=== PATIENT | female | born 1975 | race Caucasian/White ===

== ENCOUNTER 2025-03-30 19:19 | Emergency (ER) | payer OTHER, SELFPAY ==
[2025-03-30] VITALS (30 sets, daily range): BP systolic 155–206; BP diastolic 109–154; PULSE 74–105; RESP 16–33; TEMP 36.7; O2SAT 90–97; BMI 40.5
--- OUTSIDE RECORDS SUMMARY | 2025-03-30 19:21 | XMS_ITS | Clinical Summary ---
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 For routine questions regarding patient records, call [phone] during business hours, M-F 8:00 AM - 5:00 PM Central Time. Record requests for emergency care only can be directed to [phone] at any time.[facility] Allergies Active Allergy Reactions Criticality Noted Date Comments Fish Containing Products Hives only, no other systemic symptoms,Edema, suggestive of allergic reaction, i.e., lip, tongue, or throat swelling,GI intolerance High 07/04/2008 Medications amLODIPine (Norvasc) 5 mg tablet Take 1 tablet (5 mg total) by mouth daily. 30 tablet 1 4 Active albuterol 2.5 mg /3 mL nebulizer solution Inhale 3 mL (2.5 mg total) by nebulization every 6 (six) hours as needed for wheezing or shortness of breath. 75 mL 11 4 Active ipratropium-alb uteroL (DuoNeb) 0.5-2.5 mg/3 mL nebulizer solution Inhale 3 mL by nebulization 4 (four) times a day. 180 mL 11 4 Active lisinopriL 10 mg tablet Take 1 tablet (10 mg total) by mouth daily. 30 tablet 2 4 Active predniSONE (Deltasone) 10 mg tablet Take 1 tablet (10 mg total) by mouth daily. Take 4 tablets daily x 4 days. 16 tablet 4 Active polyethylene glycol (Miralax) 17 gram powder packet Take 1 packet by mouth daily as needed for constipation. Dissolve each 17 g dose in 240 mLs (8 ounces) of beverage. 4 Active sennosides-docu sate sodium (Senokot-S) 8.6-50 mg per tablet Take 1 tablet by mouth 2 (two) times a day. 4 Active Active Problems Problem Noted Date Diagnosed Date Shortness Of Breath 12/07/2023 Chronic Obstructive Pulmonary Disease Exacerbati on 12/07/2023 Hypertensive Heart Disease Without Heart Failure 12/07/2023 Dependence Polysubstance 12/07/2023 Body Mass Index 39.0 To 39.9 Adult 12/07/2023 Social History Tobacco Use Types Packs/Day Years Used Date Smoking Tobacco: Every Day Cigarettes 0.5 20 Alcohol Use Standard Drinks/Week Comments Yes 0 (1 standard drink = 0.6 oz pur e alcohol) monthly [facility] Utilities Answer Date Recorded In the past 12 months has [facility] [employer], oil, or water [employer] threatened to shut off services in your home? No 12/15/2023 Humiliation, Afraid, Rape, and Kick questionnair e Answer Date Recorded Within the last year, have y ou been afraid of your partner or ex-partner? No 12/07/2023 Within the last year, have y ou been humiliated or emotionally abused in other ways by your partner or ex-partner? No Within the last year, have y ou been kicked, hit, slapped, or otherwise physically hurt by your partner or ex-partner? No 12/07/2023 Within the last year, have y ou been raped or forced to have any kind of sexual activity by your partner or ex-partner? No 12/07/2023 Hunger Vital Sign Answer Date Recorded Within the past 12 months, y ou worried that your food would run out before you got the money to buy more. Sometimes true Within the past 12 months, t he food you bought just didn't last and you didn't have money to get more. Sometimes true PRAPARE - Transportation Answer Date Re corded In the past 12 months, has l ack of transportation kept you from medical appointments or from getting medications? Yes 11/24 In the past 12 months, has l ack of transportation kept you from meetings, work, or from getting things needed for daily living? Yes 12/15/2023 Depression Answer Date Recor ded PHQ-9 Total Score (max 27) 14 12/14 Housing Stability Answer Date Recorded What is your living situatio n today? 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 Gender Identity Female 12/15/2023 9:24 PM CDT Sexual Orientation Straight 12/15/2023 9: 24 PM CDT Last Filed Vital Signs Vital Sign Reading Time Taken Comments Blood Pressure 150/93 12/08/2023 10:03 AM CDT Pulse 96 12/08/2023 8:05 AM CDT Temperature 37 C (98.6 F) 12/08/2023 8:05 AM CDT Respiratory Rate 20 12/08/2023 8:05 AM CDT Oxygen Saturation 94% 12/08/2023 8:05 AM CDT Inhaled Oxygen Concentration - - Weight 101 kg (222 lb 10.6 oz) 12/07/2023 11:19 AM CDT Height 160 cm (5' 3) 12/07/2023 11:19 AM CDT Body Mass Index 39.44 12/07/2023 11:19 AM CDT Plan of Treatment Health Maintenance Due Date Last Done Comments CT Colonography 1977 Cervical/Vaginal Cancer Screening 1977 Cologuard 1977 Colonoscopy 1977 Colorectal Cancer Screening 1977 FIT 1977 HIV Screening 1977 Hepatitis C Screening 1977 Mammogram 1977 Office Visit for Blood Press ure Check / Re-check 1977 Tobacco Cessation counseling 1977 IPV Vaccines (3 of 3 - 4-dose series) 03/07/1983, 02/03/1980 Hepatitis B Vaccines (1 of 3 - 19+ 3-dose series) 1996 Pneumococcal vaccine (0-49 y ears) (1 of 2 - PCV) 1996 DTaP,Tdap,and Td Vaccines (1 - Tdap) 09/04/201008/24, 02/11/2006 Depression Screening (Annual PHQ-2) 05/26/2024 Creatinine Level (Kidney Fun ction Test) 12/06/2024 12/07/2023, 12/01/2023, 11/30/2023 Potassium Level 12/06/2024 12/07/2023, 07/0 12/2023, 11/30/2023 Sodium Level 12/06/2024 12/07/2023, 07/0 12/2023, 11/30/2023 COVID-19 Vaccine ( - 2024- season) 2025 Influenza Vaccine (#1) 2025 Fasting Glucose for Diabetes Screening 12/06/2026 12/07/2023, 12/01/2023, 11/30/2023 Lipid (Cholesterol) Screening 11/30/2028 12/01/2023 Procedures Procedure Name Priority Date/Time Associated Diagnosis Comments BASIC METABOLIC PANEL, S/P STAT 12/07/2023 7:31 AM CDT from Last 3 Months or Most Recently Relevant to Health Maintenance Results * (ABNORMAL) Basic Metabolic Panel (12/07/2023 7:31 AM CDT) Potassium, P 3.9 3.6 - 5.2 mmol/L 12/07/2023 7:55 AM CDT CNFL Sodium, P 136 135 - 145 mmol/L 12/07/2023 7:55 AM CDT [facility] Chloride, P 101 98 - 107 mmol/L 12/07/2023 7:55 AM CDT [facility] Bicarbonate, P 24 22 - 29 mmol/L 12/07/2023 7:55 AM CDT [facility] Anion Gap, P 11 7 - 15 12/07/2023 7:55 AM CDT [facility] BUN (Blood Urea Nitrogen), P 10 6 - 21 mg/dL 12/07/2023 7:55 AM CDT CN[facility] Creatinine 0.71 0.59 - 1.04 mg/dL 12/07/2023 7:55 AM CDT [facility] Estimated GFR (eGFR) >90 >=60 mL/min/BSA 12/07/2023 7:55 AM CDT [facility] Comment: Estimated GFR calculated using the 2020 CKD_EPI creatinine equation. Calcium, Total, P 8.4(L) 8.6 - 10.0 mg/dL 12/07/2023 7:55 AM CDT [facility] Glucose, P 107 70 - 140 mg/dL 12/07/2023 7:55 AM CDT [facility] Blood (Blood, Venous) 12/07/2023 7:31 AM CDT 12/07/2023 7:36 AM CDT Nica Polo P.A.-C., P.A., M.S. LAB BLOOD ADD-O N Final Result [facility] [address] [place] [id number], [facility] [place] [facility] in [address] [address] from Last 3 Months or Most Recently Relevant to Health Maintenance Insurance [facility] [place] [address] Advance Directives For more information, please contact: [phone] * Full Code (Latest Code Status on File) Date Activated Date Inactivated Comments 12/07/2023 11:56 AM 12/08/2023 3:35 PM Question Answer Comments Full Code: Discussed Care Teams Body Trimmer Upholsterer Relationship Specialty Start Date End Date None Reported, Pcp PCP - General 04/02/24
--- NOTE | 2025-03-30 19:36 | ED.GENADULT ---
HPI - General Adult General Chief complaint: Chest Pain Stated complaint: Chest pressure, high BP Time Seen by Provider: 03/30/25 19:36 History of Present Illness HPI narrative: chest pressure started this AM . states SOB increasing throughout day with headache and cough, took home b/p and was 199/142. felt dizzy and came in. pt hx CHF. pt has pitting edema bilat lower. 49-year-old woman presenting to the emergency department with concern of increasing shortness of breath and anterior chest pressure. Not actually with pleuritic pain. She did also note her blood pressure to be elevated at 199/142. She was feeling more lightheaded so presented to the emergency department. No fever. She has been experiencing some cough. Headache though not horrible is left frontal. No visual disturbance. I note her to be with some end-expiratory wheezing and she denies a history of reactive airway. She does endorse congestive heart failure, unspecified and hypertension. Denies any history of heart attack. 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 Was last hospitalized she thinks in October of this year. Has had increasing lower extremity swelling right greater than left. Typically it is more symmetrical when she swells. She is not having pain in her legs though. Due to loss of insurance she has been without her medication for unspecified amount of months maybe 3 or 4. Medications included amlodipine and lisinopril and furosemide plus or minus low-dose aspirin. Currently taking care of her mother and her aunt driving [facility] and here. Related Data Home Medications ?Medication ?Instructions ?Recorded ?Confirmed amlodipine 5 mg tablet 5 mg PO DAILY 03/30/25 03/30/25 lisinopril 10 mg tablet 10 mg PO DAILY 03/30/25 03/30/25 Allergies Allergy/AdvReac Type Severity Reaction Status Date / Time Fish Containing Products AdvReac Verified 03/30/25 21:17 Review of Systems Status of ROS: Reports: 6 or more systems reviewed and unremarkable except as noted in History and below [facility] Social History Smoking Status: Current every day smoker What tobacco products do you use: cigarettes How often do you have a drink containing alcohol: monthly or less AUDIT-C Alcohol total score: 1 Non-prescribed substance use: marijuana (any form) and amphetamines/methamphetamines Non-prescribed substance use details: daily marijuana, no recent meth use Exam Narrative: Exam Narrative: Pleasant. Labored in her breathing. Mildly tachypneic. Trace end-expiratory wheeze. There breath sounds throughout but a little diminished again with this expiratory wheeze. Oropharynx looks dry. Partially edentulous. There is no JVD. No HJR. Abdomen is obese soft and nontender. Heart is tachycardic in a regular rhythm. She is well-perfused peripherally. Extremities are warm. Generally full but without pitting edema on bilateral lower extremities look relatively symmetrical to me. No pain. Funduscopic exam was challenging and unclear. Pupils are equal and 2 mm. Appears to be mentating normally. Does appear tired. Const: Vital Signs, click to edit/add: Vital Signs - 24 hr 03/30/25 19:26 03/30/25 19:47 03/30/25 19:48 Temperature 98.1 F Pulse Rate 98 Pulse Rate [Pulse Oximeter] 105 H Respiratory Rate 24 26 H Blood Pressure Blood Pressure [Ri ght Upper Arm] 206/154 H Pulse Oximetry 97 95 97 Oxygen Delivery Me thod Room Air 03/30/25 20:41 03/30/25 20:43 03/30/25 20:45 Temperature Pulse Rate 94 94 90 Pulse Rate [Pulse Oximeter] Respiratory Rate 29 H 28 H 24 Blood Pressure 189/140 H 182/134 H Blood Pressure [Ri ght Upper Arm] Pulse Oximetry 96 95 94 Oxygen Delivery Me thod 03/30/25 20:46 03/30/25 21:00 03/30/25 21:02 Temperature Pulse Rate 91 81 84 Pulse Rate [Pulse Oximeter] Respiratory Rate 24 23 33 H Blood Pressure 174/131 H Blood Pressure [Ri ght Upper Arm] Pulse Oximetry 94 92 94 Oxygen Delivery Me thod 03/30/25 21:15 03/30/25 21:30 03/30/25 21:32 Temperature Pulse Rate 82 89 89 Pulse Rate [Pulse Oximeter] Respiratory Rate 24 24 16 Blood Pressure 166/121 H Blood Pressure [Ri ght Upper Arm] Pulse Oximetry 93 90 90 Oxygen Delivery Me thod 03/30/25 21:45 03/30/25 22:00 03/30/25 22:02 Temperature Pulse Rate 87 84 84 Pulse Rate [Pulse Oximeter] Respiratory Rate 22 27 H 29 H Blood Pressure 174/126 H Blood Pressure [Ri ght Upper Arm] Pulse Oximetry 93 93 93 Oxygen Delivery Me thod 03/30/25 22:03 03/30/25 22:18 03/30/25 22:20 Temperature Pulse Rate 85 82 Pulse Rate [Pulse Oximeter] Respiratory Rate 28 H 27 H 26 H Blood Pressure 180/136 H Blood Pressure [Ri ght Upper Arm] Pulse Oximetry 93 90 96 Oxygen Delivery Me thod Room Air 03/30/25 22:21 03/30/25 22:30 03/30/25 22:32 Temperature Pulse Rate 84 85 Pulse Rate [Pulse Oximeter] Respiratory Rate 27 H 26 H 18 Blood Pressure 173/130 H Blood Pressure [Ri ght Upper Arm] Pulse Oximetry 94 91 Oxygen Delivery Me thod 03/30/25 22:45 03/30/25 22:51 03/30/25 23:00 Temperature Pulse Rate 76 83 76 Pulse Rate [Pulse Oximeter] Respiratory Rate 20 27 H 21 Blood Pressure 165/129 H Blood Pressure [Ri ght Upper Arm] Pulse Oximetry 91 94 91 Oxygen Delivery Me thod 03/30/25 23:01 03/30/25 23:15 03/30/25 23:30 Temperature Pulse Rate 80 76 Pulse Rate [Pulse Oximeter] Respiratory Rate 18 17 21 Blood Pressure 170/131 H Blood Pressure [Ri ght Upper Arm] Pulse Oximetry 93 96 Oxygen Delivery Me thod 03/30/25 23:32 Temperature Pulse Rate 75 Pulse Rate [Pulse Oximeter] Respiratory Rate 31 H Blood Pressure 155/109 H Blood Pressure [Ri ght Upper Arm] Pulse Oximetry 94 Oxygen Delivery Me thod Documenting provider has reviewed patient's vital signs: yes Course Vital Signs Vital signs: Initial Vital Signs Temperature 98.1 F 03/30/25 19:26 Temperature Source Temporal Artery Scan 03/30/25 19:26 Pulse Rate 105 H 03/30/25 19:26 Respiratory Rate 24 03/30/25 19:26 Blood Pressure 206/154 H 03/30/25 19:26 Blood Pressure Mean 171 H 03/30/25 19:26 Blood Pressure Position Sitting 03/30/25 19:26 Pulse Oximetry 97 03/30/25 19:26 Oxygen Delivery Method Room Air 03/30/25 19:26 Vital Signs Temperature 98.1 F 03/30/25 19:26 Pulse Rate 105 H 03/30/25 19:26 Respiratory Rate 24 03/30/25 19:26 Blood Pressure 206/154 H 03/30/25 19:26 Pulse Oximetry 97 03/30/25 19:26 Oxygen Delivery Method Room Air 03/30/25 19:26 Temperature 98.1 F 03/30/25 19:26 Pulse Rate 75 03/30/25 23:32 Respiratory Rate 31 H 03/30/25 23:32 Blood Pressure 155/109 H 03/30/25 23:32 Pulse Oximetry 94 03/30/25 23:32 Oxygen Delivery Method Room Air 03/30/25 22:20 Medications Administered Medications: Discontinued Medications Generic Name Dose Route Start Last Admin Trade Name Freq PRN Reason Stop Dose Admin Amlodipine Besylate 5 mg 03/30/25 21:23 03/30/25 21:53 Amlodipine 5 Mg Tablet PO 03/30/25 21:24 5 mg ONCE ONE Administration Diphenhydramine HCl 25 mg 03/30/25 19:47 03/30/25 20:07 Diphenhydramine 50 Mg/Ml Inj IVP 03/30/25 19:48 25 mg ONCE ONE Administration Furosemide 20 mg 03/30/25 21:23 03/30/25 21:31 Furosemide 10 Mg/Ml Inj IVP 03/30/25 21:24 20 mg ONCE ONE Administration Sodium Chloride 500 mls @ 500 mls/hr 03/30/25 19:47 03/30/25 22:00 0.9 % Sodium Chloride 500 Ml IV 03/30/25 20:46 Infused .Q1H ONE Infusion Sodium Chloride 500 mls @ 500 mls/hr 03/30/25 22:42 03/30/25 22:51 0.9 % Sodium Chloride 500 Ml IV 03/30/25 23:41 500 mls/hr .Q1H ONE Administration Metoprolol Tartrate 5 mg 03/30/25 20:43 03/30/25 20:54 Metoprolol Tartrate 1 Mg/Ml Inj IVP 03/30/25 20:44 5 mg ONCE ONE Administration Metoprolol Tartrate 25 mg 03/30/25 21:05 03/30/25 21:31 Metoprolol Tartrate 100 Mg Tablet PO 03/30/25 21:06 25 mg ONCE ONE Administration Metoprolol Tartrate 25 mg 03/30/25 22:00 03/30/25 22:03 Metoprolol Tartrate 25 Mg Tablet PO 03/30/25 22:01 Not Given ONCE ONE Ondansetron HCl 4 mg 03/30/25 19:47 03/30/25 20:07 Ondansetron 2 Mg/Ml Inj IVP 03/30/25 19:48 4 mg ONCE ONE Administration Medical Decision Making MDM Narrative Medical decision making narrative: I do have concerns of hypertensive emergency/urgency here. Off medications likely exacerbating underlying possible heart failure. Will be placed on monitoring engineer and oximetry. Pulmonary embolus is differential as well. Think would be prudent to scan her chest. Look for pleural effusion, pericardial effusion. May simply be a pneumonia. She is not hypoxic. The wheeze I think might be more related to fluid. Will hold off on nebulization at this point and is already tachycardic. She does note allergy to fish by product apparently in childhood. Has had scans before with contrast that have not created at allergic reaction but does end up getting nauseated and might vomit. Would like to assess with bedside ultrasound the IVC/fluid volume. Point of care bedside ultrasound by myself would in looks to have good global cardiac function. Does seem maybe a little enlarged. I do not appreciate a pericardial effusion. IVC actually seems appropriately compressible, not excessively large. From this exam I would think is euvolemic. Labs began to return. Remarkable for U tox positive for marijuana and methamphetamine. Normal D-dimer. Urinalysis with 2+ protein a small amount of blood. Magnesium of 2. Chemistries are unremarkable including normal sodium and potassium and BUN of 15 creatinine 0.9 BNP is rather elevated at 6950 Blood pressure following 5 mg of Lopressor improve slightly to 174/131. Heart rate from 105 now to 82. Appears to be tolerating this well. Double checking prior medications with Jennifer I give 20 mg of furosemide IV, 5 mg of amlodipine. And 25 mg of p.o. Lopressor. Holding on lisinopril at this point I do not think she is overloaded with fluid in heart failure exacerbation in fact think she might be intravascularly to euvolemic. I have been hesitant to use nitro drip for blood pressure and afterload reduction in part as might contribute to further tachycardia. Would otherwise be beneficial for diuresis. I asked Jennifer about last use of methamphetamine and she believes it was about a month ago finding current presence puzzling. Chest CTA independently review by me I think shows some congestion. Tiny right-sided pleural effusion. I do not see pericardial effusion. Heart looks moderately enlarged. Do manage to obtain discharge summary from admission August 21 to 08/22/2024 looks like similar presentation to today admitted with ?hypertensive crisis At that time was experiencing headache shortness of breath chest tightness right leg pain nausea vomiting. She had not been taking any medications prior to that visit. Blood pressure initially 119/158 labs with a BNP of [address] chest was done without pulmonary embolus as she had mildly elevated D-dimer. Urine drug screen was positive for methamphetamine and THC. After emergency treatment was initiated on amlodipine and received potassium replacement and looks like she left early. Does not appear that Sarah has had an echocardiogram. Ultimately diagnosis was ?hypertensive urgency?, polysubstance abuse, morbid obesity, hypertensive heart disease without heart failure, methamphetamine use disorder, history of TIA, hypokalemia Past medical included TIA, hypertension and hypertensive urgency with prior admission to July 2024, suspected COPD in nicotine dependence, psoriasis It looks like last weight was 230 lb. That was after entry at 238 lb. Today when inquired about her weight she thinks she has a little bit above 200 and today measured 220 lb. Radiology over-read of CT chest below Study:?CT-Chest Angio 95CC ISOVUE 370-03/30/2025 8:42:03 PM Ordering Physician:Gisselle Aponte Final Report: INDICATION: Increasing dyspnea, chest pressure TECHNIQUE: CT chest with i.v. contrast using pulmonary angiographic technique. MIPS, coronal and sagittal reformats were obtained. CONTRAST: 95 mL Isovue 370 COMPARISON: None FINDINGS: Cardiovascular: Moderate enlargement of the main pulmonary artery is present measuring 3.5 cm in maximal short axis diameter. The pulmonary arteries are unremarkable in enhancement with no evidence of acute pulmonary embolism. Moderate biventricular cardiomegaly with enlargement of the atria are noted. Ectasia of the ascending aorta is noted measuring 3.7 cm in maximal short axis diameter. Mediastinum: No mass or adenopathy seen. Lung: Mosaic attenuation is present in both lungs which may be due to lobular air trapping. A 6 mm nodule is noted in the posterior superior segment of the right lower lobe on image 98, series 5. High-risk patients can include those of older age, history of heavy smoking, and upper lobe nodules or nodules with irregular or spiculated margins. Fleischner Society Recommendations are not applicable in patients younger than 35, patients with known cancer or immunocompromised states. Pleura and pericardium: Trace right pleural effusion is present. No significant pericardial effusion is present. Chest wall and axilla: No mass or adenopathy seen. Bone: Unremarkable for age. Upper abdomen: Unremarkable. IMPRESSIONS: 1. No CT evidence of acute pulmonary emboli seen. 2. Moderate biventricular cardiomegaly with enlargement of the atria are noted. 3. Moderate enlargement of the main pulmonary artery is present measuring 3.5 cm in maximal short axis diameter. This may be due to pulmonary hypertension or a high cardiac output state. 4. A 6 mm nodule is noted in the posterior superior segment of the right lower lobe on image 98, series 5. In accordance with the 2017 Revised Fleischner Society Recommendations, initial follow-up CT in 6-12 months and then scans at 18-24 months are recommended if the patient has a high risk stratification. REFERENCE: 1. Bakari H, Rae Yousif et al. Guidelines for Management of Incidental Pulmonary Nodules Detected on CT Images: From the Fleischner Society 2017. Radiology. 2017;284(1):228-43. DOI:10.1148/radiol.5223981028 - Pubmed. Dictated by Albert Mendoza MD @ 03/30/2025 9:30:05 PM I have discussed potential admission with Ms. Prather. She has signed out AMA at last admission. She is amenable to admission at this point if really necessary but her preference is not to be admitted if possible. On reassessment feeling much improved with blood pressure 170/130. No longer tachycardic in the low 80s. She notes herself feeling much better. She certainly has more energy, seems more alert. Breathing easily and wheeze has resolved. Good air movement throughout. She has made a few trips to the bathroom. Did review this case with our hospitalist to admit or optimize outpatient management. Does appear safe for discharge at this time. At this point are not continuing amlodipine pending follow-up echocardiogram. Will be continued on Lisinopril 5 mg daily Furosemide 20 mg daily Aspirin 81 mg EC daily Metoprolol tartrate 25 mg twice daily See patient discharge plan for further discussion It was a pleasure to take care of you. I am happy you are feeling better. Please though do which you can to quit smoking -- see the quit plan number your received This might be helpful. Also discuss with a doctor. Also do what you can to quit methamphetamine. For now at least start attending meetings. Try to get in a little exercise outside every day. We are giving you medications for 3 days. Also giving you prescriptions to take to [facility] locally. They are affiliated with the [employer] program. Would like you to follow-up with [facility], at least until you can get your insurance sorted-- see enclosed information for location. Dr. Tyra Ferrara is very good and I think you will get along with her. There are other quality providers though there as well. I anticipate you getting a formal study of your heart called an echocardiogram in addition to other recommendations. Findings on echocardiogram may result in recommended medication changes. You may also soon receive a study of your lung function and treatment for what appears to be some COPD as well. You also had a small pulmonary nodule seen on the CT of your chest which will require follow-up imaging. This was present in your CT imaging in [place] in July 2024. It looks unchanged today. Please discuss on clinic follow-up as to when next imaging should be done but probably would be repeated somewhere between 18-24 months from now. Be sure to finish this paperwork for insurance application. Good luck. Medical Records Medical records reviewed: Yes I reviewed the patient's medical records Lab Data Lab results reviewed: Yes I reviewed the patient's lab results Labs: Lab Results 03/30/25 03/30/25 03/30/25 Range/Units 19:30 19:47 19:51 WBC 10.50 (4.50-11.00) K/uL RBC 4.47 (4.00-5.20) m/uL Hgb 13.6 (12.0-16.0) gm/dL Hct 42.2 (33.0-51.0) % MCV 94 (80-100) fL MCH 30 (26-34) pg MCHC 32 (32-36) gm/dL RDW Coeff of Vladimir 13.5 (11.5-15.5) % Plt Count 299 (140-440) K/uL Neut % (Auto) 74.7 H (42.0-72.0) % Lymph % (Auto) 15.2 L (20-44) % Smyth % (Auto) 6.4 (0.0-11.0) % Eos % (Auto) 3.1 (0.0-7.0) % Baso % (Auto) 0.4 (0.0-3.0) % Neut # (Auto) 7.80 H (1.7-7.0) K/uL Lymph # (Auto) 1.60 (0.90-2.90) K/uL Smyth # (Auto) 0.70 (0.00-0.90) K/UL Eos # (Auto) 0.33 (0.00-0.50) K/uL Baso # (Auto) 0.04 (0.00-0.30) K/uL Abs Immat Gran (auto) 0.02 (0.00-0.30) K/uL Imm/Tot Granulo (auto) 0.2 % D-Dimer Quant (PE/DVT) 0.49 (0.00-0.50) ug/ml Sodium 138 (135-149) mmol/L Potassium 3.8 (3.6-5.1) mmol/L Chloride 105 (96-114) mmol/L Carbon Dioxide 26 (20-32) mmol/L Anion Gap 7 (7-15) mEq/L BUN 15 (5-24) mg/dL Creatinine 0.9 (0.5-1.5) mg/dL Estimated Creat Clear 61.12 Estimated GFR 79 ml/min Glucose 91 (60-115) mg/dL Calcium 9.1 (8.4-10.6) mg/dL Magnesium 2.0 (1.5-2.6) mg/dL Total Bilirubin 1.7 H (0.1-1.5) mg/dL Direct Bilirubin 0.4 (0.0-0.5) mg/dL AST 28 (12-35) U/L ALT 30 (4-35) U/L Alkaline Phosphatase 118 (40-150) U/L Troponin I < 0.01 (0.01-0.04) ng/mL C-Reactive Protein 1.8 H (0.5-1.0) mg/dL NT-Pro-B Natriuret Pep 6950 H (See Note) pg/mL Total Protein 7.8 (6.0-8.3) g/dL Albumin 4.1 (3.3-5.0) g/dL Urine Color (Yellow) Urine Appearance (Clear) Urine pH (5.0-8.5) Ur Specific [place] (1.000-1.030) Urine Protein (Negative) Urine Glucose (UA) (Negative) Urine Ketones (Negative) Urine Blood (Negative) Urine Nitrite (Negative) Urine Bilirubin (Negative) Urine Urobilinogen (0.2-1.0) Ur Leukocyte Esterase (Negative) Urine RBC (0-2) Urine WBC (0-5) Ur Squamous Epith Cells (None-Few) Urine Bacteria (None) Urine Opiates Screen (Negative) Ur Oxycodone Screen (Negative) Urine Methadone Screen (Negative) Ur Barbiturates Screen (Negative) U Tricyclic Antidepress (Negative) Ur Phencyclidine Scrn (Negative) Ur Amphetamines Screen (Negative) U Methamphetamines Scrn (Negative) U Benzodiazepines Scrn (Negative) Urine Cocaine Screen (Negative) U Marijuana (THC) Screen (Negative) Ur Drug Screen Comment SARS-CoV-2 (PCR) Negative SARS-CoV-2 (Negative) Influenza Type A (PCR) Negative PCR FLU A (Negative) Influenza Type B (PCR) Negative PCR FLU B (Negative) RSV (PCR) Negative PCR RSV (Negative) Lab Acknowledgement 03/30/25 03/30/25 Range/Units 19:54 21:10 WBC (4.50-11.00) K/uL RBC (4.00-5.20) m/uL Hgb (12.0-16.0) gm/dL Hct (33.0-51.0) % MCV (80-100) fL MCH (26-34) pg MCHC (32-36) gm/dL RDW Coeff of Vladimir (11.5-15.5) % Plt Count (140-440) K/uL Neut % (Auto) (42.0-72.0) % Lymph % (Auto) (20-44) % Smyth % (Auto) (0.0-11.0) % Eos % (Auto) (0.0-7.0) % Baso % (Auto) (0.0-3.0) % Neut # (Auto) (1.7-7.0) K/uL Lymph # (Auto) (0.90-2.90) K/uL Smyth # (Auto) (0.00-0.90) K/UL Eos # (Auto) (0.00-0.50) K/uL Baso # (Auto) (0.00-0.30) K/uL Abs Immat Gran (auto) (0.00-0.30) K/uL Imm/Tot Granulo (auto) % D-Dimer Quant (PE/DVT) (0.00-0.50) ug/ml Sodium (135-149) mmol/L Potassium (3.6-5.1) mmol/L Chloride (96-114) mmol/L Carbon Dioxide (20-32) mmol/L Anion Gap (7-15) mEq/L BUN (5-24) mg/dL Creatinine (0.5-1.5) mg/dL Estimated Creat Clear Estimated GFR ml/min Glucose (60-115) mg/dL Calcium (8.4-10.6) mg/dL Magnesium (1.5-2.6) mg/dL Total Bilirubin (0.1-1.5) mg/dL Direct Bilirubin (0.0-0.5) mg/dL AST (12-35) U/L ALT (4-35) U/L Alkaline Phosphatase (40-150) U/L Troponin I (0.01-0.04) ng/mL C-Reactive Protein (0.5-1.0) mg/dL NT-Pro-B Natriuret Pep (See Note) pg/mL Total Protein (6.0-8.3) g/dL Albumin (3.3-5.0) g/dL Urine Color Yellow (Yellow) Urine Appearance Clear (Clear) Urine pH 6.5 (5.0-8.5) Ur Specific [place] 1.025 (1.000-1.030) Urine Protein 2+ A (Negative) Urine Glucose (UA) Negative (Negative) Urine Ketones Negative (Negative) Urine Blood Negative (Negative) Urine Nitrite Negative (Negative) Urine Bilirubin Negative (Negative) Urine Urobilinogen 0.2 (0.2-1.0) Ur Leukocyte Esterase Negative (Negative) Urine RBC 2-5 A (0-2) Urine WBC 2-5 (0-5) Ur Squamous Epith Cells Few (None-Few) Urine Bacteria Few A (None) Urine Opiates Screen Negative (Negative) Ur Oxycodone Screen Negative (Negative) Urine Methadone Screen Negative (Negative) Ur Barbiturates Screen Negative (Negative) U Tricyclic Antidepress Negative (Negative) Ur Phencyclidine Scrn Negative (Negative) Ur Amphetamines Screen POSITIVE A (Negative) U Methamphetamines Scrn POSITIVE A (Negative) U Benzodiazepines Scrn Negative (Negative) Urine Cocaine Screen Negative (Negative) U Marijuana (THC) Screen POSITIVE A (Negative) Ur Drug Screen Comment See Note SARS-CoV-2 (PCR) (Negative) Influenza Type A (PCR) (Negative) Influenza Type B (PCR) (Negative) RSV (PCR) (Negative) Lab Acknowledgement Test Added ECG Data Attestation: I personally reviewed and interpreted this ECG as follows: (Sinus tachycardia at 101. Enlarged p-waves) Critical Care Time Critical Care Time Critical Care Time: Yes Attestation: The patient required my highest level preparedness to intervene emergently and I personally spent this critical care time directly and personally managing the patient. This critical care time included: Obtaining a history; Examining the patient; Pulse oximetry; Ordering and reviewing of studies; Arranging urgent treatment with development of a management plan; Evaluation of patients response to treatment; Frequent reassessment discussions with other providers. This critical care time was performed to assess and manage the high probability of imminent life-threatening deterioration that could result in multiorgan failure. It was exclusive of separate billable procedures and treating other patients and teaching time. Total Critical Care Time in Minutes: 80 Discharge Plan Discharge Clinical Impression: Malignant hypertensive urgency, Methamphetamine abuse, Nicotine dependence, Pulmonary nodule, Pulmonary edema with congestive heart failure Patient Disposition: Home, Self-Care Condition: Improved Additional Instructions: It was a pleasure to take care of you. I am happy you are feeling better. Please though do which you can to quit smoking -- see the quit plan number your received This might be helpful. Also discuss with a doctor. Also do what you can to quit methamphetamine. For now at least start attending meetings. Try to get in a little exercise outside every day. We are giving you medications for 3 days. Also giving you prescriptions to take to [facility] locally. They are affiliated with the [facility]. Would like you to follow-up with [facility], at least until you can get your insurance sorted-- see enclosed information for location. Dr. Tyra Ferrara is very good and I think you will get along with her. There are other quality providers though there as well. I anticipate you getting a formal study of your heart called an echocardiogram in addition to other recommendations. Findings on echocardiogram may result in recommended medication changes. You may also soon receive a study of your lung function and treatment for what appears to be some COPD as well. You also had a small pulmonary nodule seen on the CT of your chest which will require follow-up imaging. This was present in your CT imaging in [place] in July 2024. It looks unchanged today. Please discuss on clinic follow-up as to when next imaging should be done but probably would be repeated somewhere between 18-24 months from now. Be sure to finish this paperwork for insurance application. Good luck. Prescriptions: No Action lisinopril 10 mg tablet 10 mg PO DAILY amlodipine 5 mg tablet 5 mg PO DAILY Follow Up/Referrals: Provider,Not a Local [Primary Care Provider, Family Practice] Stand Alone Forms: [employer] Info Instructions
--- NOTE | 2025-03-30 19:47 | CRLHL7_ITS ---
For Patients: As a result of the Century Cures Act, medical imaging exams and procedure reports are released immediately into your electronic medical record. You may view this report before your referring provider. If you have questions, please contact your health care provider. INDICATION: Increasing dyspnea, chest pressure TECHNIQUE: CT chest with i.v. contrast using pulmonary angiographic technique. MIPS, coronal and sagittal reformats were obtained. CONTRAST: 95 mL Isovue 370 COMPARISON: None FINDINGS: Cardiovascular: Moderate enlargement of the main pulmonary artery is present measuring 3.5 cm in maximal short axis diameter. The pulmonary arteries are unremarkable in enhancement with no evidence of acute pulmonary embolism. Moderate biventricular cardiomegaly with enlargement of the atria are noted. Ectasia of the ascending aorta is noted measuring 3.7 cm in maximal short axis diameter. Mediastinum: No mass or adenopathy seen. Lung: Mosaic attenuation is present in both lungs which may be due to lobular air trapping. A 6 mm nodule is noted in the posterior superior segment of the right lower lobe on image 98, series 5. High-risk patients can include those of older age, history of heavy smoking, and upper lobe nodules or nodules with irregular or spiculated margins. Fleischner Society Recommendations are not applicable in patients younger than 35, patients with known cancer or immunocompromised states. Pleura and pericardium: Trace right pleural effusion is present. No significant pericardial effusion is present. Chest wall and axilla: No mass or adenopathy seen. Bone: Unremarkable for age. Upper abdomen: Unremarkable. IMPRESSIONS: 1. No CT evidence of acute pulmonary emboli seen. 2. Moderate biventricular cardiomegaly with enlargement of the atria are noted. 3. Moderate enlargement of the main pulmonary artery is present measuring 3.5 cm in maximal short axis diameter. This may be due to pulmonary hypertension or a high cardiac output state. 4. A 6 mm nodule is noted in the posterior superior segment of the right lower lobe on image 98, series 5. In accordance with the 2017 Revised Fleischner Society Recommendations, initial follow-up CT in 6-12 months and then scans at 18-24 months are recommended if the patient has a high risk stratification. REFERENCE: 1. Bakari H, Rae Yousif et al. Guidelines for Management of Incidental Pulmonary Nodules Detected on CT Images: From the Fleischner Society 2017. Radiology. 2017;284(1):228-43. DOI:10.1148/radiol.[id number] - Pubmed. Dictated by Albert Mendoza MD @ 03/30/2025 9:30:05 PM Please note that all CT scans at this facility use dose modulation, iterative reconstruction, and/or weight-based dosing when appropriate to reduce radiation dose to as low as reasonably achievable. Dictated by: Albert Mendoza MD @ 03/30/2025 21:30:18 (Electronically Signed)
[2025-03-30 19:58] LABS: Hematocrit* 42.2 % (33.0-51.0); Hemoglobin* 13.6 gm/dL (12.0-16.0); Immature Granulocytes Abs Auto 0.02 K/uL (0.00-0.30); Immature Granulocytes Pct Auto 0.2 %; Lymphocytes Absolute Auto 1.60 K/uL (0.90-2.90); Mean Corpuscular HGB Conc 32 gm/dL (32-36); Mean Corpuscular Hemoglobin 30 pg (26-34); Mean Corpuscular Volume 94 fL (80-100); RDW Coefficient of Variation % 13.5 % (11.5-15.5); Red Blood Count* 4.47 m/uL (4.00-5.20); White Blood Count* 10.50 K/uL (4.50-11.00)
[2025-03-30 20:02] LABS: Appearance Urine Clear (Clear)
[2025-03-30 20:04] LABS: Slide Review Reflex No
[2025-03-30] MEDS: ONDANSETRON 2 MG/ML inj 4 MG IVP (20:07)
[2025-03-30 20:13] LABS: Cannabinoid Screen Urine POSITIVE (Negative); Methamphetamines Screen Urine POSITIVE (Negative); Tricyclic Antidepressant Urine Negative (Negative)
[2025-03-30 20:15] LABS: Albumin* 4.1 g/dL (3.3-5.0); Chloride* 105 mmol/L (96-114); Potassium* 3.8 mmol/L (3.6-5.1); Sodium* 138 mmol/L (135-149)
[2025-03-30 20:17] LABS: Blood Urea Nitrogen* 15 mg/dL (5-24); Creatinine* 0.9 mg/dL (0.5-1.5); Est. Creatinine Clearance* 61.12; Estimated Glomerular Filt Rate 79 ml/min
[2025-03-30 20:18] LABS: Alanine Aminotransferase* 30 U/L (4-35); Alkaline Phosphatase* 118 U/L (40-150); Anion Gap 7 mEq/L (7-15); Aspartate Amino Transferase* 28 U/L (12-35); Bilirubin Direct* 0.4 mg/dL (0.0-0.5); Bilirubin Total* 1.7 mg/dL (0.1-1.5); Carbon Dioxide* 26 mmol/L (20-32); Total Protein* 7.8 g/dL (6.0-8.3)
[2025-03-30 20:19] LABS: Calcium* 9.1 mg/dL (8.4-10.6); Glucose* 91 mg/dL (60-115)
[2025-03-30 20:20] LABS: D Dimer Quantitative* 0.49 ug/ml (0.00-0.50)
--- OUTSIDE RECORDS SUMMARY | 2025-03-30 20:34 | XMS_ITS | Clinical Summary ---
Author Organization [employer] [facility] Address [address] [place] [address] Care Team Providers Care Cripple Worker Name Role Phone Provider, No Primary Primary Care Provider Unava ilable Allergies Active Allergy Reactions Criticality Noted Date Comments Fish Containing Products Hives High 12/23/2018 Medications amLODIPine (NORVASC) 5 mg oral TabletIndications :Elevated blood pressure reading Take 1 Tablet (5 mg) by mouth in the morning. 30 Tablet 06/03/2022 Active lisinopriL (ZESTRIL,PRINIVIL ) 10 mg oral TabletIndications :Primary hypertension Take 1 Tablet (10 mg) by mouth in the morning. 30 Tablet 11/09/2024 Active amLODIPine (NORVASC) 5 mg oral TabletIndications :Primary hypertension Take 1 Tablet (5 mg) by mouth in the morning. 30 Tablet 11/09/2024 Active furosemide (LASIX) 20 mg oral TabletIndications :Chronic diastolic congestive heart failure (HCC) Take 1 Tablet (20 mg) by mouth in the morning. 30 Tablet 11/09/2024 Active Active Problems Problem Noted Date Diagnosed Date TIA (transient ischemic attack) 06/03/2022 Methamphetamine use 12/29/2018 Nontoxic single thyroid nodule 12/29/2018 Right leg weakness 12/24/2018 Immunizations Immunization Administration Dates Next Due MMR Vaccine (Mumps, Measles, Rubella) SQ 980 Poliovirus Vaccine, IM or SQ (IPV) 09/05/1982, Td, Tetanus-Diphtheria(Prese rv Free,>7yrs)(Tenivac)(Decavac) 09/03/2010,02/11/2006 Family History Medical History Relation Name Comments Lymphoma Father No Known Problems Mother Relation Name Status Comments Father Mother Social History Tobacco Use Types Packs/Day Years Used Date Smoking Tobacco: Every Day Cigarettes 0.3 25 Smokeless Tobacco: Never Tobacco Cessation:Ready to Q uit: No; Counseling Given: No Alcohol Use Standard Drinks/Week Comments Not Currently 0 (1 standard drink = 0.6 oz pur e alcohol) Depression (PHQ-9) Answer Date Recorded Last PHQ-9 Score Not on file 08/11/2019 Thoughts of self harm Not on file 08/11/2019 Intimate Partner Violence Answer Date R ecorded Are you in a relationship wh ere you are physically hurt, threatened and/or made to feel afraid? 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 SAW OPERATOR Height 160 cm (5' 3) 06/03/2022 2:05 AM CONCRETE SAW OPERATOR Body Mass Index 40.81 06/03/2022 2:05 AM CONCRETE SAW OPERATOR Plan of Treatment Health Maintenance Due Date Last Done Comments HPV Testing 1977 Hepatitis C Testing 1977 Depression Screening 1989 HIV Screen 1992 Hepatitis B Vaccines (1 of 3 - 19+ 3-dose series) 1996 Cervical Cancer Screening 1998 Lipids Standard 2012 Mammogram Standard 2017 DTaP/Tdap/Td Vaccines (3 - Tdap) 09/03/2020 09/03/2010, 02/11/2006 CT Colonography 2022 Colonoscopy 2022 Colorectal Cancer Screening 2022 Fecal Immunochemical DNA Heaven t (FIT-DNA) 2022 Fecal Immunochemical Test (FIT) 2022 COVID-19 Vaccine ( - 2024-2 6 season) 2025 Influenza Vaccine (#1) 2025 Varicella Zoster Sequential (1 of 2) 12/21/2027 Respiratory Syncytial Virus (RSV) Vaccine (1 - 1-dose 75+ series) 2052 HIB Vaccines Aged Out No longer eligi ble based on patient's age to complete this topic HPV Vaccines (No Doses Required) Completed Hepatitis A Vaccines Aged Out No long er eligible based on patient's age to complete this topic Meningococcal B Vaccines Aged Out No longer eligible based on patient's age to complete this topic Meningococcal Vaccines Aged Out No lo nger eligible based on patient's age to complete this topic Pneumococcal Vaccine (0-49 Years) Aged Out No longer eligible b ased on patient's age to complete this topic [facility] Advance Directives * Full Code (Latest Code Status on File) Date Activated Date Inactivated Comments 06/03/2022 3:29 AM 06/03/2022 3:18 PM * Full Code Date Activated Date Inactivated Comments 06/03/2022 2:35 AM 06/03/2022 3:29 AM * Full Code Date Activated Date Inactivated Comments 12/24/2018 6:17 AM 12/24/2018 3:14 PM Care Teams Cripple Worker Relationship Specialty Start Date End Date Provider, No Primary . DERREK ERICKSON [id number] PCP - General 04/21/15 Additional Source Comments PLEASE NOTE: Replies to this message will not be received.[facility] and [facility]
--- OUTSIDE RECORDS SUMMARY | 2025-03-30 20:34 | XMS_ITS | Clinical Summary ---
Author Organization [facility] Address [address] [place] [address] Care Team Providers Care Staff Genetic Counselor Name Role Phone Unavailable Primary Care Provider Unavailabl e Allergies Active Allergy Reactions Criticality Noted Date Comments Fish Containing Products Throat Swelling/Closing,Vomiting 07/04/2008 Medications No known medications Active Problems Problem Noted Date Diagnosed Date Hypokalemia 08/22/2024 Morbid obesity 08/21/2024 Hypertensive heart disease without heart failure 12/07/2023 Polysubstance dependence 12/07/2023 Polysubstance abuse 12/05/2023 Acute respiratory distress 12/01/2023 Hypertensive urgency 12/01/2023 Acute heart failure with pre served ejection fraction (HFpEF) 12/01/2023 Bronchitis 12/01/2023 History of TIA (transient ischemic attack) 06/03 Methamphetamine use disorder, severe 12/29/2018 Nontoxic single thyroid nodule 12/29/2018 Immunizations Immunization Administration Dates Next Due Inactivated Polio Vaccine 09/05/1982,02/03/1980 MMR 02/03/1980 Polio Virus, Unspecified 09/05/1982,02/03/1980 TD, UNSPECIFIED 09/03/2010 Td (Age >=7 Years) 09/03/2010,02/11/2006 Td, Preservative Free (age >= 7 Years) 6 Social History Tobacco Use Types Packs/Day Years Used Date Smoking Tobacco: Every Day Cigarettes Smokeless Tobacco: Never Tobacco Cessation:Ready to Q uit: Not Asked; Counseling Given: Not Answered Comments:smokes 2 packs a week this week decreased significantly Alcohol Use Standard Drinks/Week Comments Yes 3 (1 standard drink = 0.6 oz pur e alcohol) socially jag bombs Social Connections Answer Date Recorded Do you often feel lonely or isolated from those around you? 0 08/22/2024 Financial Resource Strain Answer Date R ecorded Difficulty of Paying Living Expenses Not on file 08/22/2024 Difficulty of Paying Living Expenses 3 08/22/2024 Food Insecurity Answer Date Recorded Do you worry your food will run out before you are able to buy more? 2 08/22/2024 Transportation Needs Answer Date Record ed Does lack of transportation keep you from medica l appointments? 1 08/22/2024 Does lack of transportation keep you from work, meetings or getting things that you need? 1 08/22/2024 Housing Stability Answer Date Recorded What is your housing situation today? 3 08/22/2024 Interpersonal Safety Answer Date Record ed Are you being hit, kicked, p ushed or yelled at (see row info)? No 08/21/2024 Interpersonal Safety Abuse 12 - 18 Not on file 08/21/2024 Interpersonal Safety Ambulatory Vulnerability No t on file 08/21/2024 Utilities Answer Date Recorded Do you have trouble paying f or utilities (for example, heat, electricity, water, phone)? 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 Gender Identity Not on file Sexual Orientation Not on file Occupation Industry Job Start Date Job End Date [employer] Not on file Not on file Not on file Obstetrics History Last Filed Vital Signs Vital Sign Reading Time Taken Comments Blood Pressure 142/76 08/22/2024 9:00 AM CDT Pulse 77 08/22/2024 8:11 AM CDT Temperature 36.9 C (98.5 F) 08/22/2024 8:08 AM CDT Respiratory Rate 20 08/22/2024 8:08 AM CDT Oxygen Saturation 96% 08/22/2024 9:00 AM CDT Inhaled Oxygen Concentration - - Weight 104.5 kg (230 lb 4.8 oz) 08/22/2024 5:40 AM CDT Height 160 cm (5' 3) 08/21/2024 7:13 PM CDT Body Mass Index 40.8 08/21/2024 7:13 PM CDT Plan of Treatment Health Maintenance Due Date Last Done Comments Depression screening for age 12+ 1989 HIV for age 15-65 1992 Hepatitis C screening for ag e 18-79 12/21/1995 Hepatitis B series for 19+ ( 1 of 3 - 19+ 3-dose series) 1996 Pneumococcal series for age 6-49 (1 of 2 - PCV) 1996 Pap test for age 21-65 02/11/2009 02/11/2006 Tetanus booster 09/03/2020 09/03/2010, 08/24, 08/24/2010, Additional history exists Colonoscopy through age 75 2022 Mammogram for age 45-75 2022 BMI (ht and wt on same day) for age 18+ 12/04/2024 12/05/2023 Influenza Vaccine (#1) 2025 Lipids for age 45-75 11/30/2028 12/01/2023, 02/14/20 06 RSV vaccine for adults or (1 - 1-dose 75+ series) 2052 Procedures Procedure Name Priority Date/Time Associated Diagnosis Comments LIPID PANEL Early AM 12/01/2023 5:37 AM CDT GYNECOLOGICAL PANEL Timed 02/11/2006 2 :41 PM CDT from Last 3 Months or Most Recently Relevant to Health Maintenance Results * Lipid Panel (12/01/2023 5:37 AM CDT) CHOLESTEROL,TOTAL 135 100 - 199 mg/dL 12/01/2023 7:10 AM [facility] Comment: Cholesterol, Total Reference Ranges Desirable <200 mg/dL Borderline 200-239 mg/dL High >=240 mg/dL TRIGLYCERIDES 33 <150 mg/dL 12/01/2023 7:10 AM [facility] HDL CHOLESTEROL 55 >40 mg/dL 7:10 AM [facility] NON-HDL CHOLESTEROL 80 <145 mg/dl 12/01/2023 7:10 AM [facility] CHOL/HDL RATIO 2.45 <4.50 12/01/2023 7:10 AM CDT [facility] LDL CHOLESTEROL 73 <=130 mg/dL 12/01/2023 7:10 AM CDT [facility] VLDL CHOLESTEROL 7 <=30 mg/dL 12/01/2023 7:10 AM CDT [facility] PROVIDER ORDERED STATUS RANDOM 12/01/2023 7:10 AM CDT [facility] Blood BLOOD SPECIMEN / Unknown Venipuncture / Unknown 12/01/2023 5:37 AM CDT 12/01/2023 6:02 AM CDT us Corey Hollins MD CHEMISTRY Final Result [facility] [address] [place] [address] * GYNECOLOGICAL PANEL (02/11/2006 2:41 PM CDT) CYTOLOGY CYTOPATHOLOGY REPORT [facility] Status: Final Report [id number] CLINICAL INFORMATION LMP : Not given Previous Pap Date : Not given Previous PAP Dx : Not given Previous [place]/bx date : None Previous Colposcopy/Bx: None Hormone Usage : Not given Appearance of Cervix : Not given [place]/Bx done today : No HPV Request : Reflex HPV test if PAP Dx ASCUS SPECIMEN SOURCE : Cervical/vaginal ThinPrep Vial, screening SPECIMEN ADEQUACY : Satisfactory for evaluation Endocervical component present. INTERPRETATION/RES ULT: Negative for intraepithelial lesion or malignancy. Organisms Shift in pj suggestive of bacterial vaginosis Cytology 1st Screener : lewis Signed by: lewis This specimen was screened by the FDA approved ThinPrep Imaging System and manually reviewed. NOTE: The Pap test is a screening technique, not a diagnostic procedure. It is used primarily to screen for squamous cancers and precursor lesions. Published studies have shown that it is subject to both false negative and false positive results. The pap test should not be used as the sole means to diagnose or exclude pre-malignant and malignant lesions. COLLECTED: 02/11/06 ACCESSIONED: 02/12/06 SIGNED: 02/21/06 [facility] 02/11/2006 2:41 PM CDT 02/12/2006 8:26 AM CDT us Mulu Schumacher MD PATHOLOGY/CYTOLOGY Fin al Result [facility] [place]IP [address] [address] from Last 3 Months or Most Recently Relevant to Health Maintenance Insurance MEDICAID [id number] [place] [id number] [facility] Member Subscriber Plan / Payer (Ef fective 2022-Present) Name:Jennifer Purvis Relation to Subscriber:Self Name:Jennifer Purvis Payer ID:[id number] ([facility]) Group ID:[id number] Type:Not on file Address: [place] [phone] Advance Directives * Full Code (Latest Code Status on File) Date Activated Date Inactivated Comments 08/22/2024 1:01 AM 08/22/2024 12:42 PM Question Answer Comments Code Status Discussion: Reviewed Preferences * Full Code Date Activated Date Inactivated Comments 11/30/2023 9:07 PM 12/01/2023 7:40 PM Question Answer Comments Code Status Discussion: Reviewed Preferences
[2025-03-30 20:36] LABS: PCR FLU A Negative PCR FLU A (Negative); PCR FLU B Negative PCR FLU B (Negative); PCR RSV Negative PCR RSV (Negative); SARS PCR* Negative SARS-CoV-2 (Negative)
[2025-03-30 20:41] LABS: NT Pro B Type NatriureticPept* 6950 pg/mL (See Note)
[2025-03-30] MEDS: 0.9 % SODIUM CHLORIDE 500 ML 500 ML IV ×2 (20:42→22:51)
[2025-03-30] MEDS: METOPROLOL TARTRATE 1 MG/ML inj 5 MG IVP (20:54)
[2025-03-30] MEDS: FUROSEMIDE 10 MG/ML inj 20 MG IVP (21:31)
[2025-03-30] MEDS: METOPROLOL TARTRATE 100 MG TABLET 25 MG PO (21:31)
[2025-03-30] MEDS: AMLODIPINE 5 MG TABLET PO (21:53)
[2025-03-31 00:21] VITALS: BP 153/108; PULSE 73; RESP 13; O2SAT 95
[2025-03-31] MEDS: ASPIRIN 81 MG TABLET EC PO (00:27)
[2025-04-07 09:30] LABS: Troponin, Point-of-Care* 0.03 ng/ml (0.01-0.04)
== END 2025-03-31 00:35 | disposition home or self-care (01) ==
PROVIDERS: Emergency Provider Family Medicine
DX: I16.0 Hypertensive urgency (principal); R91.1 Solitary pulmonary nodule; I50.1 Left ventricular failure, unspecified; F17.210 Nicotine dependence, cigarettes, uncomplicated; F15.10 Other stimulant abuse, uncomplicated
CPT/HCPCS: 36415; 71275; 80048; 80076; 80306; 81001; 83735; 83880; 84484; 85025; 85379; 86140; 87086; 87631; 93005; 94761; 99284; 99291; A9270; J1200; J1938; J2405; J7030; Q9967